=== PATIENT | female | born 1985 | race African-American/Black ===

== ENCOUNTER 2016-09-15 14:51 | Emergency (ER) | payer BC ==
[~2016-09-15] VITALS: Ht 160 cm; Wt 74.6 kg
[2016-09-15 14:59] VITALS: TEMP 37.2; Ht 160 cm; Wt 74.6 kg
[2016-09-15] MEDS ORDERED: KETOROLAC TROMETHAMINE 30 MG/ML VIAL IV STA (15:58)
[2016-09-15] MEDS ORDERED: DEXAMETHASONE SOD INJ 4 MG/ML VIAL IV STA (15:58)
[2016-09-15] MEDS ORDERED: DiphenhydrAMINE HCL 50 MG/ML VIAL IV STA (15:58)
[2016-09-15] MEDS ORDERED: SODIUM CHLORIDE 0.9% 1000ML 1,000 ML IV STA (15:58)
[2016-09-15 16:49] LABS: BASO % 0.6 %; BASO ABS # 0.03 K/uL (0-0.2); COMPLETE YES; EOS % 0.2 %; HEMATOCRIT 34.8 % (37-47); IG% 0.2 %; LYMPH % 36.5 %; LYMPH ABS # 1.75 K/uL (1.2-3.4); MEAN CELL VOLUME 82.3 fL (80-100); MEAN CORPUSCULAR HEMOGLOBIN 27.9 pg (25-34); MEAN CORPUSCULAR HGB CONC 33.9 g/dl (32-36); MEAN PLATELET VOLUME 11.3 fL (7.4-10.4); NEUT % 53.5 %; PLATELET COUNT 224 K/uL (130-400); RED BLOOD COUNT 4.23 M/uL (4.2-5.4); WHITE BLOOD COUNT 4.79 K/uL (4.8-10.8)
[2016-09-15] MEDS ORDERED: MISCCAP80 PO (16:56)
[2016-09-15] MEDS ORDERED: [UNRECOGNIZED DRUG - OTHER] (16:56)
[2016-09-15] MEDS ORDERED: MULT-506 PO (16:56)
[2016-09-15] MEDS ORDERED: FERR324T PO (16:56)
[2016-09-15 17:14] LABS: BUN/CREATININE RATIO 10.5 (10-20); CALCIUM 9.1 mg/dl (8.5-10.1); CREATININE 0.66 mg/dl (0.60-1.20); POTASSIUM 3.7 mmol/L (3.5-5.1)
[2016-09-15 17:18] LABS: PREG INTERNAL NEGATIVE QC NEG CLEAR BACKGROUND; PREG INTERNAL POSITIVE QC POS CONTROL LINE
[2016-09-15 17:25] LABS: THYROID STIMULATING HORMONE 1.2 uIu/ml (0.300-4.500)
--- NOTE | 2016-09-15 17:36 | DIAGNOSTIC IMAGING REPORT ---
CT OF THE HEAD WITHOUT CONTRAST CLINICAL HISTORY: Severe headache. Sinus pressure. COMPARISON STUDY: No previous studies for comparison. CT DOSE: 601.98 mGy.cm TECHNIQUE: Helical axial images of the head were obtained without IV contrast. Automated exposure control was utilized for the study. FINDINGS: No acute intracranial hemorrhage, midline shift or mass effect is present. Ventricular system is normal. The basilar cisterns are patent. There are no extra-axial collections. Brock-white differentiation is maintained. There are no findings to suggest acute dural sinus thrombosis or acute territorial infarct. Note is made of calcifications/ossification along the falx. Visualized portions of the sinuses and mastoid air cells are clear. No calvarial abnormalities are present. IMPRESSION: No acute intracranial findings. Electronically signed by: Abel Alonzo M.D. 09/15/2016 5:35 PM Dictated Date/Time: 09/15/2016 5:32 PM
[2016-09-15 18:10] LABS: URINE APPEARANCE CLEAR (CLEAR); URINE BILIRUBIN NEG (NEG); URINE COLOR YELLOW; URINE NITRITE NEG (NEG); URINE PH 5.5 (4.5-7.5); URINE SPECIFIC GRAVITY 1.004 (1.000-1.030); UROBILINOGEN NEG (NEG)
[2016-09-15 18:13] LABS: MANUAL MICROSCOPIC REQUIRED? NO; REVIEW REQ? YES
[2016-09-15 18:37] VITALS: BP 113/67; PULSE 58; O2SAT 100
--- NOTE | 2016-09-16 00:30 | EMERGENCY ROOM VISIT NOTE ---
ED Visit Note First contact with patient: 15:48 CHIEF COMPLAINT: Headache. HISTORY OF PRESENT ILLNESS: Ms. Raman is a 31-year-old black female who ambulates into the ED complaining of a frontal headache. Historically patient denies any previous significant history and no history of headaches. She reports a gradual onset of a severe headache that started approximately 4 days ago. The pain is constant and has waxed and waned in intensity. She does report this is the worst headache of her life and she has never had similar headaches. She reports approximately 4 days ago she felt like she was having congestion in her sinuses and was having a throbbing sensation in the temporal areas just anterior to the years bilaterally. The pain gradually started to develop a pressure sensation in the bifrontal area that radiates along the temporal and parietal areas into the occipital area. Her pain has been constant but has fluctuated in intensity. She currently rates her discomfort 6/10 but does report it was high as 9/10 and as low as 1/10. She reports she has not identified any aggravating factors related to the pain. She has been taking cold and flulike medications that had decongestants which seemed to decrease her pain. Additionally she does report approximately 2 weeks ago she was holding her pet dog and getting into her car and struck her frontal area on the car door frame. At that time she had no loss of consciousness or head injury symptoms. She denies any associated symptoms including fever, chills, sweats, skin eruptions, skin color changes, dizziness, visual changes, hearing changes, light sensitivity, difficulty speaking, difficulty swallowing, sore throats, voice changes, neck pain/stiffness, cough, wheezing, shortness of breath, abdominal pains, nausea, vomiting, extremity weakness/numbness/tingling. REVIEW OF SYSTEMS: As noted above in History of Present Illness; all systems reviewed patient and found to be negative unless noted above otherwise. PAST MEDICAL HISTORY: Patient reports she has recurrent bandlike upper abdominal pain; this has never been evaluated. CURRENT MEDICATIONS: Medications Dose Route/Sig Max Daily Dose Days Date Category Probiotic (Probiotic Product) 1 Cap Cap 1 Cap PO DAILY 09/15/16 Reported Multivitamin (Multivitamins) Tab 1 Tab PO DAILY 09/15/16 Reported Iron Supplement (Ferrous Gluconate) 324 Mg Tab 324 Mg PO DAILY 09/15/16 Reported [Sudafed Tylenol] Unknown Strength Unknown Dose 09/15/16 Reported ALLERGIES TO MEDICATIONS: Patient denies. SOCIAL HISTORY: Patient is currently employed; she feels safe in her home environment; she denies tobacco use; she admits to alcohol use. PHYSICAL EXAM: Vital Signs: Date Time Temp Pulse Resp B/P Pulse Ox O2 Delivery O2 Flow Rate FiO2 09/15/16 18:37 58 18 113/67 100 Room Air 09/15/16 17:09 67 18 124/82 100 Room Air 09/15/16 14:59 37.2 88 20 120/74 98 Room Air GENERAL: 31 year-old female in mild distress due to pain, afebrile and hemodynamically stable. Found sitting on a chair in her hospital room. NEUROLOGIC: Awake, alert and oriented to person place and time. Answering questions appropriately and following commands. Cranial nerves II-XII grossly intact. Romberg test negative. Pronator drift test negative. Short-term and long-term recall. Able respiratory movements of the hands and feet. Normal heel sung test. Q).No focal neurologic deficits noted. SKIN: Warm, dry and pink. No rashes, lesions or soft tissue trauma noted. HEENT: Normocephalic, atraumatic. No tenderness over the frontal or maxillary sinuses. External ears are nontender. Auditory canals are pink and patent. Normal-appearing tympanic membranes. PERRLA. EOMI without nystagmus. Funduscopic examination is unremarkable with normal-appearing optic disc and no signs of increased intracranial pressure. Sclerae white and conjunctiva pink without drainage. No drainage or congestion of the nose. No malocclusion. No intraoral trauma. Airway patent. Speech normal and clear. No lymphadenopathy. No JVD. Trachea midline. No carotid bruits. NECK: Soft and supple. No nuchal rigidity or meningismus. Full range of motion of the cervical spine. THORAX: Lungs clear to auscultation and equal bilaterally with no wheezing, crackles, rhonchi or stridor and equal chest wall movements. HEART: Regular rate and rhythm with no murmurs, rubs or gallops. ABDOMEN: Soft and nontender with bowel sounds present in all quadrants; no rigidity, rebound tenderness, organomegaly or guarding. MUSCULOSKELETAL: Full range of motion of all joints without any significant discomfort and the gait is normal. 5/5 muscle strength in all movements of the upper and lower extremity joints and equal bilaterally. Distal neurovascular statuses are intact and equal bilaterally. ED COURSE: Patient is assessed as noted above. Laboratory Testing: Test 09/15/16 16:40 09/15/16 17:49 Range/Units White Blood Count 4.79 4.8-10.8 K/uL Red Blood Count 4.23 4.2-5.4 M/uL Hemoglobin 11.8 12.0-16.0 g/dL Hematocrit 34.8 37-47 % Mean Corpuscular Volume 82.3 80-100 fL Mean Corpuscular Hemoglobin 27.9 25-34 pg Mean Corpuscular Hemoglobin Concent 33.9 32-36 g/dl Platelet Count 224 130-400 K/uL Mean Platelet Volume 11.3 7.4-10.4 fL Neutrophils (%) (Auto) 53.5 % Lymphocytes (%) (Auto) 36.5 % Monocytes (%) (Auto) 9.0 % Eosinophils (%) (Auto) 0.2 % Basophils (%) (Auto) 0.6 % Neutrophils # (Auto) 2.56 1.4-6.5 K/uL Lymphocytes # (Auto) 1.75 1.2-3.4 K/uL Monocytes # (Auto) 0.43 0.11-0.59 K/uL Eosinophils # (Auto) 0.01 0-0.5 K/uL Basophils # (Auto) 0.03 0-0.2 K/uL RDW Standard Deviation 41.5 36.4-46.3 fL RDW Coefficient of Variation 13.8 11.5-14.5 % Immature Granulocyte % (Auto) 0.2 % Immature Granulocyte # (Auto) 0.01 0.00-0.02 K/uL Erythrocyte Sedimentation Rate 22 0-21 mm/hr Sodium Level 141 136-145 mmol/L Potassium Level 3.7 3.5-5.1 mmol/L Chloride Level 107 98-107 mmol/L Carbon Dioxide Level 23 21-32 mmol/L Anion Gap 11.0 3-11 mmol/L Blood Urea Nitrogen 7 7-18 mg/dl Creatinine 0.66 0.60-1.20 mg/dl Est Creatinine Clear Calc Drug Dose 119.5 ml/min Estimated GFR () 136.4 Estimated GFR (Non- 117.7 BUN/Creatinine Ratio 10.5 10-20 Random Glucose 82 70-99 mg/dl Calcium Level 9.1 8.5-10.1 mg/dl Thyroid Stimulating Hormone (TSH) 1.200 0.300-4.500 uIu/ml Human Chorionic Gonadotropin, Qual NEG NEG Urine Color YELLOW Urine Appearance CLEAR CLEAR Urine pH 5.5 4.5-7.5 Urine Specific [place] 1.004 1.000-1.030 Urine Protein NEG NEG Urine Glucose (UA) NEG NEG Urine Ketones NEG NEG Urine Occult Blood 1+ NEG Urine Nitrite NEG NEG Urine Bilirubin NEG NEG Urine Urobilinogen NEG NEG Urine Leukocyte Esterase NEG NEG Urine WBC (Auto) 1-5 0-5 /hpf Urine RBC (Auto) 0-4 0-4 /hpf Urine Hyaline Casts (Auto) 1-5 0-5 /lpf Urine Epithelial Cells (Auto) 10-20 0-5 /lpf Urine Bacteria (Auto) 1+ NEG Urine Yeast (Auto) NONE PRSENT Noncontrast Head CT: Was reviewed by myself and read by the radiologist and shows no acute intracranial findings. Patient was hydrated with normal saline, she received 30 mg of Toradol IV, 25 mg of Benadryl IV, 50 mg of Decadron IV. Patient was reassessed. Patient's case was reviewed with Dr. Mckeon; we agreed on diagnostic approach, treatment, disposition and plan. Patient was educated about her condition and instructed on her treatment plan; she verbalized understanding and agreement with this plan. CLINICAL IMPRESSION: Acute headache. 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 She is afebrile, well appearing, and hemodynamically stable. She has no signs of a sinus, dental , or ear infection and no evidence of meningismus. She is neurologically intact. I do not suspect a headache to be secondary to a subarachnoid hemorrhage, meningitis, encephalitis, or intracranial mass lesion. DISPOSITION: Patient was discharged to home in stable condition; prior to departure she was reassessed and subjectively reported she was feeling much better and reported she was pain-free. DISCHARGE INSTRUCTIONS: Patient was encouraged to alternate ibuprofen and acetaminophen as needed for pain every 3 hours. Patient was encouraged to stay well hydrated. Patient was encouraged to contact her PCP and request follow-up care and treatment and possible referral to neurology. Patient was encouraged return the ED for worsening/uncontrolled pain, uncontrolled vomiting, fevers, new abnormal neurological symptoms or any new/ concerning symptoms.
== END 2016-09-15 18:37 | disposition home or self-care (01) ==
LOC: C.EDB 14:53 → C.EDC 18:37
DX: R51 Headache (principal)

== ENCOUNTER → 2016-11-30 | Outpatient (CLI) | payer BC ==
[~2016-11-30] MED LIST: FERR324T PO; MISCCAP80 PO; MULT-506 PO; [UNRECOGNIZED DRUG - OTHER]
== END | disposition home or self-care (01) ==
LOC: C.PAPS 11:14
PROVIDERS: ATTEND Obstetrics & Gynecology
DX: Z01.419 Encounter for gynecological examination (general) (routine) without abnormal findings (principal)

== ENCOUNTER → 2017-03-09 | Outpatient (CLI) | payer BC ==
[~2017-03-09] MED LIST changes: +GADAVIST IV PRN
--- NOTE | 2017-03-09 09:47 | DIAGNOSTIC IMAGING REPORT ---
BRAIN COMBO FOR IAC CLINICAL HISTORY: CHRONIC TENSION HEADACHE; PRESSURE IN RIGHT EAR. COMPARISON STUDY: Head CT September 15, 2016. TECHNIQUE: Utilizing a 1.5 Judy magnet and dedicated coil, multiplanar, multi echo imaging of the brain was performed pre and postcontrast administration with thin cut imaging through the internal auditory canals. Injection of 7 cc of Gadavist IV was uneventful. FINDINGS: There are no areas of restricted diffusion. No acute intracranial hemorrhage, midline shift or mass effect is present. Brain volume is normal. Ventricular system is normal. Basilar cisterns are patent. Flow-voids for the major intracranial vessels are present. There is no intracranial mass or pathologic enhancement. There is no signal abnormality within the brain parenchyma. No mass or abnormal enhancement is identified within the internal auditory canals. Semicircular canals are intact. There is no fluid within the mastoid air cells. There is a small mucous retention cyst within the left maxillary sinus. Calvarial signal is normal. Orbits are unremarkable. IMPRESSION: Normal MRI of the brain and internal auditory canals. Electronically signed by: Abel Alonzo M.D. 03/09/2017 9:46 AM Dictated Date/Time: 03/09/2017 9:40 AM
== END | disposition home or self-care (01) ==
LOC: C.MRIBC 08:39
PROVIDERS: ATTEND Physician Assistant
DX: G44.229 Chronic tension-type headache, not intractable (principal); H93.8X1 Other specified disorders of right ear